=== PATIENT | female | born 1935 | race Caucasian/White ===

== ENCOUNTER 2020-05-22 07:54 | Outpatient (CLI) | payer MEDICARE ==
[2020-05-22] MEDS ORDERED: ALBU18HF INH (08:23)
[2020-05-22] MEDS ORDERED: MONT10TA11 PO (08:23)
[2020-05-22] MEDS ORDERED: LEVO75TA5 PO (08:23)
[2020-06-04] MEDS ORDERED: METO25TA35 PO (10:48)
[2020-06-04] MEDS ORDERED: TRAM50TA2 PO (10:49)
== END 2020-05-22 23:59 | disposition home or self-care (01) ==
LOC: STAR 07:54 → MERGE 07:54 → STAR 23:59
PROVIDERS: ATTEND Surgery
DX: Z01.818 Encounter for other preprocedural examination (principal); K43.2 Incisional hernia without obstruction or gangrene; K62.3 Rectal prolapse
CPT/HCPCS: 93005

== ENCOUNTER 2020-06-21 13:40 | Inpatient (IN) | payer MEDICARE ==
[~2020-06-21] VITALS: Ht 162.6 cm; Wt 53.6 kg
[~2020-06-21 13:40] MED LIST: ALBU18HF INH; LEVO75TA5 PO; METO25TA35 PO; MONT10TA11 PO; TRAM50TA2 PO
--- NOTE | 2020-06-21 14:03 | NUR ---
MATTHEW (SON) [phone]. PLEASE CALL WITH UPDATE
[2020-06-21] MEDS ORDERED: SODIUM CHLORIDE 0.9% 1,000ML IVBOLUS ONE ×2 (14:30→16:30)
[2020-06-21] MEDS ORDERED: SODIUM CHLORIDE FLUSH 10ML SYR IVF ONE (14:30)
[2020-06-21 14:47] LABS: BASOPHILS # (AUTO) 0.02 x10^3/uL (0-0.1); BASOPHILS % (AUTO) 0 % (0-1); EOSINOPHILS # (AUTO) 0.06 x10^3/uL (0-0.4); EOSINOPHILS % (AUTO) 1 % (1-7); LYMPHOCYTES # (AUTO) 0.46 x10^3/uL (1-3.4); LYMPHOCYTES % (AUTO) 6 % (22-44); MD NO; MEAN CORPUSCULAR HEMOGLOBIN 30.5 pg (27.0-34.8); MEAN CORPUSCULAR HGB CONC 32.2 g/dL (32.4-35.8); MEAN CORPUSCULAR VOLUME 94.6 fL (80-100); MEAN PLATELET VOLUME 6.3 fL (7.4-10.4); MONOCYTES # (AUTO) 0.54 x10^3/uL (0.2-0.8); MONOCYTES % (AUTO) 7 % (2-9); NEUTROPHILS # (AUTO) 7.17 x10^3/uL (1.8-6.8); NEUTROPHILS % (AUTO) 87 % (42-75); PLATELET COUNT 414 x10^3/uL (130-400); RED BLOOD COUNT 3.55 x10^6/uL (3.82-5.3); RED CELL DISTRIBUTION WIDTH 15.7 % (9.6-15.2)
[2020-06-21 14:56] LABS: ALANINE AMINOTRANSFERASE 16 U/L (12-78); ALBUMIN 2.9 g/dL (3.4-5.0); ANION GAP 11 mmol/L (5-15); CALCIUM 8.7 mg/dL (8.5-10.1); CHLORIDE 97 mmol/L (98-107); CREATININE 0.63 mg/dL (0.55-1.02)
[2020-06-21 14:59] LABS: ALKALINE PHOSPHATASE 88 U/L (45-117); BILIRUBIN,TOTAL 0.7 mg/dL (0.2-1.0); TOTAL PROTEIN 7.5 g/dL (6.4-8.2)
--- NOTE | 2020-06-21 15:03 | NUR ---
PT UPRIGHT ON GURNEY AWAKE & COMFORTABLE, COOPERATIVE & RESPONDS TO STAFF QUESTIONS, NAD, COMFORT MEASURES PROVIDED, CALL LIGHT WITHIN REACH.
[2020-06-21 15:12] LABS: MICROSCOPIC INDICATED
[2020-06-21 15:28] LABS: INTERNATIONAL NORMALIZED RATIO 1.09 (0.93-1.1); PROTHROMBIN TIME 11.2 Seconds (9.6-11.5)
[2020-06-21] MEDS ORDERED: CEFTRIAXONE PMX 1GM/50ML 50 ML IV ONE (16:00)
--- NOTE | 2020-06-21 16:02 | NUR ---
PT REMAINS UPRIGHT ON GURNEY AWAKE & COMFORTABLE, COOPERATIVE & RESPONDS TO STAFF QUESTIONS, NAD, NO NEEDS AT THIS TIME, CALL LIGHT WITHIN REACH.
[2020-06-21] MEDS ORDERED: CEFTRIAXONE PMX 1GM/50ML 50 ML ONE (16:15)
[2020-06-21] MEDS ORDERED: POLYETHYLENE GLYCOL 17 GM PACKET PO PRN (17:00)
[2020-06-21] MEDS ORDERED: hydrALAzine 20 MG/ML, 1ML IVPush PRN (17:00)
[2020-06-21] MEDS ORDERED: MELATONIN 5 MG TABLET PO PRN (17:00)
[2020-06-21] MEDS ORDERED: LABETALOL 5MG/ML, 20ML IVPush PRN (17:00)
[2020-06-21] MEDS ORDERED: CEFTRIAXONE PMX 1GM/50ML 50 ML IV SCH (17:00)
[2020-06-21] MEDS ORDERED: BISACODYL 10 MG SUPP PR PRN (17:00)
[2020-06-21] MEDS ORDERED: ONDANSETRON 2MG/ML, 2ML IVPush PRN (17:00)
[2020-06-21] MEDS ORDERED: ACETAMINOPHEN 325 MG TABLET PO PRN (17:00)
--- NOTE | 2020-06-21 17:01 | NUR ---
PT AMBULATED TO [facility] STEADILY, BACK TO [facility] AWAKE & COMFORTABLE, COOPERATIVE & RESPONDS TO STAFF QUESTIONS, NAD, COMFORT MEASURES PROVIDED, CALL LIGHT WITHIN REACH.
--- NOTE | 2020-06-21 18:01 | NUR ---
Pt to be admitted to [facility], room 405-1. Report called to
[2020-06-21 18:20] VITALS: BP 147/75
[2020-06-21] MEDS ORDERED: POTA20TA89 PO (18:44)
[2020-06-21] MEDS ORDERED: FURO10DI PO (18:44)
[2020-06-21] MEDS: ALBUTEROL HFA 90 MCG/SPRAY INH SCH (20:19)
[2020-06-21] MEDS: ENOXAPARIN 40 MG/0.4 ML SQ SCH (20:21)
[2020-06-22 01:31] VITALS: BP 111/49
[2020-06-22] MEDS: LEVOTHYROXINE 75 MCG TABLET PO SCH (06:18)
[2020-06-22 06:22] LABS: BASOPHILS # (AUTO) 0.01 x10^3/uL (0-0.1); BASOPHILS % (AUTO) 0 % (0-1); EOSINOPHILS # (AUTO) 0.01 x10^3/uL (0-0.4); EOSINOPHILS % (AUTO) 0 % (1-7); LYMPHOCYTES # (AUTO) 0.45 x10^3/uL (1-3.4); LYMPHOCYTES % (AUTO) 9 % (22-44); MD NO; MEAN CORPUSCULAR HEMOGLOBIN 31.2 pg (27.0-34.8); MEAN CORPUSCULAR HGB CONC 32.9 g/dL (32.4-35.8); MEAN CORPUSCULAR VOLUME 94.9 fL (80-100); MEAN PLATELET VOLUME 7.1 fL (7.4-10.4); MONOCYTES # (AUTO) 0.37 x10^3/uL (0.2-0.8); MONOCYTES % (AUTO) 8 % (2-9); NEUTROPHILS # (AUTO) 4.11 x10^3/uL (1.8-6.8); NEUTROPHILS % (AUTO) 83 % (42-75); PLATELET COUNT 323 x10^3/uL (130-400); RED CELL DISTRIBUTION WIDTH 15.9 % (9.6-15.2)
[2020-06-22 06:33] LABS: ANION GAP 8 mmol/L (5-15); CALCIUM 8.5 mg/dL (8.5-10.1); CHLORIDE 104 mmol/L (98-107); CREATININE 0.54 mg/dL (0.55-1.02)
[2020-06-22 06:56] VITALS: BP 129/71
[2020-06-22] MEDS ORDERED: POTASSIUM CHLORIDE 20 MEQ TAB.ER.PRT PO ONE (07:00)
[2020-06-22] MEDS: MONTELUKAST 10 MG TABLET PO SCH (08:00)
[2020-06-22] MEDS: ALBUTEROL HFA 90 MCG/SPRAY INH SCH ×5 (08:00→20:33)
[2020-06-22] MEDS: SENNA/DOCUSATE TABLET PO SCH (08:00)
[2020-06-22 12:10] VITALS: BP 145/71
[2020-06-22] MEDS ORDERED: CEFTRIAXONE PMX 1GM/50ML 50 ML IV SCH (15:00)
[2020-06-22] MEDS: PIPERACILLIN/TAZO/PMX 3.375GM 50 ML IV SCH ×2 (17:59→22:36)
[2020-06-22 19:08] VITALS: BP 117/68
[2020-06-22] MEDS: ENOXAPARIN 40 MG/0.4 ML SQ SCH (20:34)
[2020-06-23 00:09] VITALS: BP 126/54
[2020-06-23 04:08] LABS: BASOPHILS % (AUTO) 0 % (0-1); EOSINOPHILS % (AUTO) 3 % (1-7); LYMPHOCYTES # (AUTO) 0.83 x10^3/uL (1-3.4); LYMPHOCYTES % (AUTO) 13 % (22-44); MD NO; MEAN CORPUSCULAR HGB CONC 32.6 g/dL (32.4-35.8); MEAN CORPUSCULAR VOLUME 95.2 fL (80-100); MEAN PLATELET VOLUME 7.1 fL (7.4-10.4); MONOCYTES # (AUTO) 0.78 x10^3/uL (0.2-0.8); MONOCYTES % (AUTO) 12 % (2-9); NEUTROPHILS # (AUTO) 4.51 x10^3/uL (1.8-6.8); NEUTROPHILS % (AUTO) 71 % (42-75); PLATELET COUNT 312 x10^3/uL (130-400); RED BLOOD COUNT 3.17 x10^6/uL (3.82-5.3); RED CELL DISTRIBUTION WIDTH 15.7 % (9.6-15.2)
[2020-06-23 04:19] LABS: CHLORIDE 105 mmol/L (98-107)
[2020-06-23 04:22] LABS: ANION GAP 6 mmol/L (5-15); CALCIUM 8.7 mg/dL (8.5-10.1); CREATININE 0.53 mg/dL (0.55-1.02)
[2020-06-23] MEDS: PIPERACILLIN/TAZO/PMX 3.375GM 50 ML IV SCH ×4 (05:14→22:26)
[2020-06-23] MEDS: LEVOTHYROXINE 75 MCG TABLET PO SCH (05:14)
[2020-06-23 06:55] VITALS: BP 125/69
[2020-06-23] MEDS: ALBUTEROL HFA 90 MCG/SPRAY INH SCH ×6 (08:22→20:49)
[2020-06-23] MEDS: MONTELUKAST 10 MG TABLET PO SCH (08:38)
[2020-06-23] MEDS: SENNA/DOCUSATE TABLET PO SCH (08:38)
[2020-06-23 12:09] VITALS: BP 106/65
[2020-06-23 18:48] VITALS: BP 107/65
[2020-06-23] MEDS: ENOXAPARIN 40 MG/0.4 ML SQ SCH (20:49)
[2020-06-23] MEDS ORDERED: OMNIPAQUE 350 MG/ML, 100ML BOTTLE ONE (23:40)
[2020-06-24 00:21] VITALS: BP 155/78
[2020-06-24] MEDS: PIPERACILLIN/TAZO/PMX 3.375GM 50 ML IV SCH ×4 (06:04→23:00)
[2020-06-24] MEDS: LEVOTHYROXINE 75 MCG TABLET PO SCH (06:05)
[2020-06-24 06:51] VITALS: BP 120/69
[2020-06-24] MEDS: IRON SUCROSE COMPLEX 100MG/5ML IV SCH (08:30)
[2020-06-24] MEDS: ASCORBIC ACID 500 MG TABLET PO SCH (08:30)
[2020-06-24] MEDS: ALBUTEROL HFA 90 MCG/SPRAY INH SCH ×3 (08:30→21:00)
[2020-06-24] MEDS: SENNA/DOCUSATE TABLET PO SCH (08:31)
[2020-06-24] MEDS: MONTELUKAST 10 MG TABLET PO SCH (08:31)
[2020-06-24] MEDS ORDERED: FLUMAZENIL 0.1 MG/1 ML, 5ML ONE (10:41)
[2020-06-24] MEDS ORDERED: NALOXONE 1 MG/ML, 2ML ONE (10:41)
[2020-06-24] MEDS ORDERED: MIDAZOLAM 1 MG/ML, 5ML ONE (10:41)
[2020-06-24] MEDS ORDERED: FENTANYL PF 100 MCG/2ML ONE (10:41)
[2020-06-24 12:30] VITALS: BP 134/79
[2020-06-24] MEDS ORDERED: LIDOCAINE 1%, 10ML ONE (14:37)
[2020-06-24 14:46] LABS: OCCULT BLOOD NEGATIVE (NEGATIVE)
[2020-06-24 16:45] VITALS: BP 152/77
[2020-06-24 20:07] VITALS: BP 120/69
[2020-06-24] MEDS: ENOXAPARIN 40 MG/0.4 ML SQ SCH (21:02)
[2020-06-25 01:11] VITALS: BP 112/61
[2020-06-25] MEDS: PIPERACILLIN/TAZO/PMX 3.375GM 50 ML IV SCH ×4 (05:00→22:04)
[2020-06-25] MEDS: LEVOTHYROXINE 75 MCG TABLET PO SCH (05:12)
[2020-06-25 05:45] LABS: BASOPHILS % (AUTO) 0 % (0-1); EOSINOPHILS # (AUTO) 0.14 x10^3/uL (0-0.4); EOSINOPHILS % (AUTO) 2 % (1-7); LYMPHOCYTES # (AUTO) 1.13 x10^3/uL (1-3.4); LYMPHOCYTES % (AUTO) 17 % (22-44); MD NO; MEAN CORPUSCULAR HEMOGLOBIN 31.1 pg (27.0-34.8); MEAN CORPUSCULAR HGB CONC 32.8 g/dL (32.4-35.8); MEAN CORPUSCULAR VOLUME 94.8 fL (80-100); MEAN PLATELET VOLUME 7.4 fL (7.4-10.4); MONOCYTES # (AUTO) 0.75 x10^3/uL (0.2-0.8); MONOCYTES % (AUTO) 11 % (2-9); NEUTROPHILS # (AUTO) 4.82 x10^3/uL (1.8-6.8); NEUTROPHILS % (AUTO) 70 % (42-75); PLATELET COUNT 327 x10^3/uL (130-400); RED CELL DISTRIBUTION WIDTH 15.4 % (9.6-15.2)
[2020-06-25 06:01] LABS: CHLORIDE 105 mmol/L (98-107)
[2020-06-25 06:10] LABS: ANION GAP 8 mmol/L (5-15); CREATININE 0.53 mg/dL (0.55-1.02)
[2020-06-25 08:10] VITALS: BP 130/75
[2020-06-25] MEDS: ALBUTEROL HFA 90 MCG/SPRAY INH SCH ×3 (09:00→20:03)
[2020-06-25] MEDS: SENNA/DOCUSATE TABLET PO SCH (09:00)
[2020-06-25] MEDS: MONTELUKAST 10 MG TABLET PO SCH (09:15)
[2020-06-25] MEDS: IRON SUCROSE COMPLEX 100MG/5ML IV SCH (09:15)
[2020-06-25] MEDS: ASCORBIC ACID 500 MG TABLET PO SCH (09:15)
[2020-06-25 13:22] VITALS: BP 110/68
[2020-06-25 19:45] VITALS: BP 114/69
[2020-06-25] MEDS: ENOXAPARIN 40 MG/0.4 ML SQ SCH (20:02)
[2020-06-26 00:16] VITALS: BP 137/76
[2020-06-26] MEDS: PIPERACILLIN/TAZO/PMX 3.375GM 50 ML IV SCH ×4 (04:34→23:01)
[2020-06-26] MEDS: LEVOTHYROXINE 75 MCG TABLET PO SCH (05:58)
[2020-06-26 06:29] LABS: CALCIUM 9.1 mg/dL (8.5-10.1); CHLORIDE 104 mmol/L (98-107)
[2020-06-26 06:33] VITALS: BP 101/57
[2020-06-26 06:33] LABS: ANION GAP 7 mmol/L (5-15); CREATININE 0.63 mg/dL (0.55-1.02)
[2020-06-26] MEDS: IRON SUCROSE COMPLEX 100MG/5ML IV SCH (09:53)
[2020-06-26] MEDS: ALBUTEROL HFA 90 MCG/SPRAY INH SCH ×4 (09:53→20:41)
[2020-06-26] MEDS: MONTELUKAST 10 MG TABLET PO SCH (09:54)
[2020-06-26] MEDS: ASCORBIC ACID 500 MG TABLET PO SCH (09:54)
[2020-06-26] MEDS: SENNA/DOCUSATE TABLET PO SCH (09:55)
[2020-06-26 15:02] VITALS: BP 122/72
[2020-06-26 19:20] VITALS: BP 105/59
[2020-06-26] MEDS: ENOXAPARIN 40 MG/0.4 ML SQ SCH (20:39)
[2020-06-27 02:08] VITALS: BP 124/70
[2020-06-27 04:37] VITALS: BP 111/70
[2020-06-27] MEDS: LEVOTHYROXINE 75 MCG TABLET PO SCH (05:11)
[2020-06-27] MEDS: PIPERACILLIN/TAZO/PMX 3.375GM 50 ML IV SCH ×2 (05:11→11:46)
[2020-06-27 07:32] VITALS: BP 97/69
[2020-06-27] MEDS: SENNA/DOCUSATE TABLET PO SCH (08:17)
[2020-06-27] MEDS: ASCORBIC ACID 500 MG TABLET PO SCH (08:19)
[2020-06-27] MEDS: MONTELUKAST 10 MG TABLET PO SCH (08:19)
[2020-06-27] MEDS: ALBUTEROL HFA 90 MCG/SPRAY INH SCH ×2 (08:20→16:00)
[2020-06-27] MEDS ORDERED: RIVA20TA PO (12:01)
[2020-06-27] MEDS ORDERED: ACET325T26 PO (12:01)
[2020-06-27 12:46] VITALS: BP 118/71
== END 2020-06-27 17:36 | DRG 871 ==
LOC: ED 16:13 → EDIP 16:31 → 4WST 18:14
PROVIDERS: ADMIT Psychiatry & Neurology Neurology; ATTEND Family Medicine
PROC: 0H98XZZ Drainage of Buttock Skin, External Approach (ICD-10-PCS; 2020-06-24)
PROC: 02HV33Z Insertion of Infusion Device into Superior Vena Cava, Percutaneous Approach (ICD-10-PCS; principal; 2020-06-27)
PROC: B548ZZA Ultrasonography of Superior Vena Cava, Guidance (ICD-10-PCS; 2020-06-27)
DX: A41.9 Sepsis, unspecified organism (principal); G93.41 Metabolic encephalopathy; N39.0 Urinary tract infection, site not specified; E87.1 Hypo-osmolality and hyponatremia; D68.69 Other thrombophilia; D63.8 Anemia in other chronic diseases classified elsewhere; I48.91 Unspecified atrial fibrillation; E03.9 Hypothyroidism, unspecified; E87.6 Hypokalemia; J45.909 Unspecified asthma, uncomplicated; B96.89 Other specified bacterial agents as the cause of diseases classified elsewhere; R65.20 Severe sepsis without septic shock; N73.9 Female pelvic inflammatory disease, unspecified; B96.5 Pseudomonas (aeruginosa) (mallei) (pseudomallei) as the cause of diseases classified elsewhere; K62.3 Rectal prolapse; K43.9 Ventral hernia without obstruction or gangrene; D50.9 Iron deficiency anemia, unspecified; D47.3 Essential (hemorrhagic) thrombocythemia; K43.2 Incisional hernia without obstruction or gangrene; K57.90 Diverticulosis of intestine, part unspecified, without perforation or abscess without bleeding; K80.20 Calculus of gallbladder without cholecystitis without obstruction; Z90.710 Acquired absence of both cervix and uterus; Z79.899 Other long term (current) drug therapy; Z89.611 Acquired absence of right leg above knee; Z90.722 Acquired absence of ovaries, bilateral; Z63.4 Disappearance and death of family member; Z82.49 Family history of ischemic heart disease and other diseases of the circulatory system
CPT/HCPCS: 36415; 36573; 49405; 49406; 71045; 74177; 75989; 80048; 80053; 81001; 82272; 82728; 83540; 83550; 83605; 83735; 84145; 84443; 85025; 85610; 87040; 87070; 87075; 87077; 87086; 87106; 87186; 87205; 93005; 96361; 96374; 99156; 99157; C1894; G0378; J0696; J1650; J1756; J2250; J2543; J3010; Q9967; C1729; C1751; C1769; J2310; J7030